=== PATIENT | female | born 1990 | race Caucasian/White ===

== ENCOUNTER 2018-04-02 12:14 | Emergency (ER) | payer OTHER ==
[2018-04-02] MEDS: SOD CHLORIDE 0.9% 1,000 ML IV (13:37)
[2018-04-02] MEDS: ONDANSETRON 4 MG INJ IV (13:37)
[2018-04-02 13:56] LABS: ADD MAN DIFF? NO
[2018-04-02 13:57] LABS: ABNORMAL IP MESSAGE 1; BASOPHILS % 0.3 % (0.0-2.0); EOSINOPHILS # 0.1 10^3/ul (0.0-0.5); EOSINOPHILS % 1.2 % (0.0-7.0); HEMATOCRIT 38.6 % (37.0-47.0); HEMOGLOBIN 13.1 g/dl (12.0-16.0); LYMPHOCYTES # 1.1 10^3/ul (0.8-2.9); LYMPHOCYTES % 9.2 % (15.0-51.0); MEAN CORPUSCULAR HEMOGLOBIN 29.6 pg (29.0-33.0); MEAN CORPUSCULAR HGB CONC 33.9 g/dl (32.0-37.0); MEAN CORPUSCULAR VOLUME 87.1 fl (82.0-101.0); MEAN PLATELET VOLUME 13.3 fl (7.4-10.4); MONOCYTE # 0.5 10^3/ul (0.3-0.9); MONOCYTES % 4.4 % (0.0-11.0); NEUTROPHIL # 10.3 10^3/ul (1.6-7.5); NEUTROPHILS % 84.6 % (39.0-77.0); PLATELET COUNT 199 10^3/UL (140-415); RED BLOOD COUNT 4.43 10^6/ul (4.20-5.40); RED CELL DISTRIBUTION WIDTH 12.2 % (11.5-14.5)
[2018-04-02 13:57] LABS: WHITE BLOOD COUNT 12.2 10^3/ul (4.8-10.8)
[2018-04-02 14:07] LABS: POSITIVE DIFF @See below
[2018-04-02 14:26] LABS: ALANINE AMINOTRANSFERASE 19 IU/L (13-69); ALBUMIN 3.8 g/dl (3.3-4.9); ALBUMIN/GLOBULIN RATIO 0.97; ALKALINE PHOSPHATASE 65 IU/L (42-121); ANION GAP 14 (8-16); ASPARTATE AMINO TRANSFERASE 27 IU/L (15-46); BILIRUBIN,INDIRECT 0.5 mg/dl (0-1.1); BILIRUBIN,TOTAL 0.5 mg/dl (0.2-1.3); BLOOD UREA NITROGEN 3 mg/dl (7-20); CALCIUM 9.5 mg/dl (8.4-10.2); CARBON DIOXIDE 22 mmol/L (21-31); CHLORIDE 104 mmol/L (97-110); GLUCOSE 85 mg/dl (70-220); POTASSIUM 3.5 mmol/L (3.5-5.1); SODIUM 136 mmol/L (135-144); TOTAL PROTEIN 7.7 g/dl (6.1-8.1)
[2018-04-02 14:50] LABS: ADD UMIC YES; UR ASCORBIC ACID NEGATIVE (NEGATIVE); UR BACTERIA FEW /HPF (NONE SEEN); UR BILIRUBIN (Dip) NEGATIVE (NEGATIVE); UR BLOOD (Dip) 1+ mg/dL (NEGATIVE); UR CLARITY CLEAR (CLEAR); UR COLOR YELLOW (YELLOW); UR GLUCOSE (Dip) NEGATIVE (NEGATIVE); UR KETONES (Dip) 1+ mg/dL (NEGATIVE); UR LEUKOCYTE ESTERASE (Dip) NEGATIVE Leu/ul (NEGATIVE); UR NITRITE (Dip) NEGATIVE (NEGATIVE); UR RBC 1 /HPF (0-5); UR SPECIFIC GRAVITY (Dip) 1.006 (1.003-1.030); UR SQUAMOUS EPITHELIAL CELL FEW /HPF (FEW); UR TOTAL PROTEIN (Dip) NEGATIVE (NEGATIVE); UR UROBILINOGEN (Dip) 1+ mg/dL (NEGATIVE); UR WBC 2 /HPF (0-5)
[2018-04-02] MEDS: ACETAMINOPHEN 325 MG TAB PO (15:04)
== END 2018-04-02 15:07 | disposition home or self-care (01) ==
LOC: FTE 12:14
DX: O99.89 Other specified diseases and conditions complicating pregnancy, childbirth and the puerperium (principal); M54.5 Low back pain; O21.9 Vomiting of pregnancy, unspecified; R30.9 Painful micturition, unspecified; Z3A.17 17 weeks gestation of pregnancy
CPT/HCPCS: 76805; 80053; 81001; 85025; 87086; 96361; 96374; 99285-25

== ENCOUNTER 2018-10-03 05:28 | Inpatient (IN) | payer OTHER ==
[2018-10-03] MEDS ORDERED: FENTAnyl 50 MCG/ML VIAL ×2 (07:31→07:32)
[2018-10-03] MEDS ORDERED: MIDAZOLAM 1 MG/ML 2 ML INJ (07:32)
[2018-10-03] MEDS: VASOPRESSIN 20 UNITS INJ (07:57)
[2018-10-03] MEDS ORDERED: ONDANSETRON 4 MG INJ (08:55)
[2018-10-03] MEDS ORDERED: LIDOCAINE 2% (SDV) 5 ML INJ (08:55)
[2018-10-03] MEDS ORDERED: CEFAZOLIN 1 GM INJ (08:55)
[2018-10-03] MEDS ORDERED: PROPOFOL 20 ML (08:55)
[2018-10-03] MEDS ORDERED: ROCURONIUM 50 MG INJ (08:55)
[2018-10-03] MEDS ORDERED: morphine 10 MG INJ (08:56)
[2018-10-03] MEDS ORDERED: KETOROLAC 30 MG INJ (09:05)
[2018-10-03] MEDS ORDERED: HYDROmorphONE 1 MG/ML SYG (09:20)
[2018-10-03] MEDS ORDERED: HYDROmorphONE 1 MG/5 ML IV SYRINGE IV (09:21)
[2018-10-03] MEDS ORDERED: ONDANSETRON 4 MG INJ IV (09:30)
[2018-10-03] MEDS ORDERED: FENTAnyl 50 MCG/ML VIAL IV (09:30)
[2018-10-03] MEDS ORDERED: DIPHENHYDRAMINE 50 MG INJ IV (09:30)
[2018-10-03] MEDS ORDERED: MIDAZOLAM 1 MG/ML 2 ML INJ IV (09:30)
[2018-10-03] MEDS ORDERED: METOCLOPRAMIDE 10 MG INJ IV (09:30)
[2018-10-03] MEDS: HYDROmorphONE 1 MG/5 ML IV SYRINGE IV ×2 (09:32→09:53)
[2018-10-03] MEDS: MEPERIDINE 25 MG INJ IV (10:01)
[2018-10-03] MEDS: MAGNESIUM HYDROXIDE 30ML CUP PO (10:54)
[2018-10-03] MEDS: LACTATED RINGER'S 1,000 ML IV ×2 (10:54→19:29)
[2018-10-03] MEDS: HYDROmorphONE 2 MG/ML SYG IV (13:19)
[2018-10-03] MEDS: ONDANSETRON 4 MG INJ IV ×2 (14:07→17:27)
[2018-10-03] MEDS: HYDROmorphONE 0.2 MG/ML PCA IV (15:16)
[2018-10-04] MEDS: HYDROmorphONE 0.2 MG/ML PCA IV (00:59)
[2018-10-04] MEDS: ACETAMINOPHEN 325 MG TAB PO (01:47)
[2018-10-04] MEDS: LACTATED RINGER'S 1,000 ML IV ×3 (03:26→17:38)
[2018-10-04 04:01] LABS: ADD UMIC YES; UR ASCORBIC ACID NEGATIVE (NEGATIVE); UR BILIRUBIN (Dip) NEGATIVE (NEGATIVE); UR BLOOD (Dip) 1+ mg/dL (NEGATIVE); UR CLARITY CLEAR (CLEAR); UR COLOR STRAW (YELLOW); UR GLUCOSE (Dip) NEGATIVE (NEGATIVE); UR KETONES (Dip) 1+ mg/dL (NEGATIVE); UR LEUKOCYTE ESTERASE (Dip) NEGATIVE Leu/ul (NEGATIVE); UR NITRITE (Dip) NEGATIVE (NEGATIVE); UR RBC 1 /HPF (0-5); UR SPECIFIC GRAVITY (Dip) 1.008 (1.003-1.030); UR TOTAL PROTEIN (Dip) NEGATIVE (NEGATIVE); UR UROBILINOGEN (Dip) NEGATIVE (NEGATIVE); UR WBC 0 /HPF (0-5)
[2018-10-04 05:04] LABS: ADD MAN DIFF? NO
[2018-10-04 05:07] LABS: WHITE BLOOD COUNT 10.5 10^3/ul (4.8-10.8)
[2018-10-04 05:07] LABS: BASOPHILS % 0.2 % (0.0-2.0); EOSINOPHILS % 0.1 % (0.0-7.0); HEMATOCRIT 33.1 % (37.0-47.0); HEMOGLOBIN 11.1 g/dl (12.0-16.0); LYMPHOCYTES # 0.9 10^3/ul (0.8-2.9); LYMPHOCYTES % 8.2 % (15.0-51.0); MEAN CORPUSCULAR HEMOGLOBIN 29.6 pg (29.0-33.0); MEAN CORPUSCULAR HGB CONC 33.5 g/dl (32.0-37.0); MEAN CORPUSCULAR VOLUME 88.3 fl (82.0-101.0); MEAN PLATELET VOLUME 12.1 fl (7.4-10.4); MONOCYTE # 0.6 10^3/ul (0.3-0.9); MONOCYTES % 5.7 % (0.0-11.0); NEUTROPHIL # 8.9 10^3/ul (1.6-7.5); NEUTROPHILS % 85.5 % (39.0-77.0); PLATELET COUNT 158 10^3/UL (140-415); RED BLOOD COUNT 3.75 10^6/ul (4.20-5.40); RED CELL DISTRIBUTION WIDTH 13.9 % (11.5-14.5)
[2018-10-04 05:24] LABS: ALANINE AMINOTRANSFERASE 22 IU/L (13-69); ALBUMIN 3.2 g/dl (3.3-4.9); ALBUMIN/GLOBULIN RATIO 1.18; ALKALINE PHOSPHATASE 48 IU/L (42-121); ANION GAP 7 (5-13); ASPARTATE AMINO TRANSFERASE 33 IU/L (15-46); BILIRUBIN,INDIRECT 0.8 mg/dl (0-1.1); BILIRUBIN,TOTAL 0.8 mg/dl (0.2-1.3); BLOOD UREA NITROGEN 3 mg/dl (7-20); CALCIUM 8.6 mg/dl (8.4-10.2); CARBON DIOXIDE 24 mmol/L (21-31); CHLORIDE 106 mmol/L (97-110); CREATININE 0.52 mg/dl (0.44-1.00); Estimated GFR > 60 mL/min (>60); GLUCOSE 98 mg/dl (70-220); POTASSIUM 3.8 mmol/L (3.5-5.1); SODIUM 137 mmol/L (135-144); TOTAL PROTEIN 5.9 g/dl (6.1-8.1)
[2018-10-04] MEDS: BISACODYL 10 MG SUPP PR ×2 (06:14→15:30)
[2018-10-04] MEDS: MAGNESIUM HYDROXIDE 30ML CUP PO (06:15)
[2018-10-04] MEDS ORDERED: HYDROCODONE/APAP (5/325) TAB PO (09:30)
[2018-10-04] MEDS: HYDROCODONE/APAP (5/325) TAB PO ×2 (09:57→13:27)
[2018-10-04] MEDS: IBUPROFEN 800 MG TAB PO ×2 (14:14→19:10)
[2018-10-04] MEDS ORDERED: BISACODYL 10 MG SUPP PR (17:00)
[2018-10-04] MEDS: ONDANSETRON 4 MG INJ IV (19:46)
[2018-10-05] MEDS: LACTATED RINGER'S 1,000 ML IV ×3 (01:01→21:00)
[2018-10-05] MEDS: ONDANSETRON 4 MG INJ IV ×3 (01:14→16:08)
[2018-10-05] MEDS: IBUPROFEN 800 MG TAB PO ×3 (01:15→16:08)
[2018-10-05 05:31] LABS: ADD MAN DIFF? NO
[2018-10-05 05:35] LABS: WHITE BLOOD COUNT 10.6 10^3/ul (4.8-10.8)
[2018-10-05 05:35] LABS: BASOPHILS % 0.1 % (0.0-2.0); EOSINOPHILS # 0.1 10^3/ul (0.0-0.5); EOSINOPHILS % 1.2 % (0.0-7.0); HEMATOCRIT 32.1 % (37.0-47.0); HEMOGLOBIN 10.4 g/dl (12.0-16.0); LYMPHOCYTES % 9.1 % (15.0-51.0); MEAN CORPUSCULAR HEMOGLOBIN 29.1 pg (29.0-33.0); MEAN CORPUSCULAR HGB CONC 32.4 g/dl (32.0-37.0); MEAN CORPUSCULAR VOLUME 89.9 fl (82.0-101.0); MONOCYTE # 0.7 10^3/ul (0.3-0.9); MONOCYTES % 6.5 % (0.0-11.0); NEUTROPHIL # 8.8 10^3/ul (1.6-7.5); NEUTROPHILS % 82.7 % (39.0-77.0); PLATELET COUNT 163 10^3/UL (140-415); RED BLOOD COUNT 3.57 10^6/ul (4.20-5.40)
== END 2018-10-05 21:40 | disposition home or self-care (01) | DRG 743 ==
LOC: SDS 05:28 → REC 09:12 → MS1 10:11
PROVIDERS: Obstetrics & Gynecology
PROC: 0UB20ZZ Excision of Bilateral Ovaries, Open Approach (ICD-10-PCS; principal; 2018-10-03 07:27)
PROC: 0UDB8ZX Extraction of Endometrium, Via Natural or Artificial Opening Endoscopic, Diagnostic (ICD-10-PCS; 2018-10-03 07:27)
PROC: 0UB90ZZ Excision of Uterus, Open Approach (ICD-10-PCS; 2018-10-03 07:27)
PROC: 0U520ZZ Destruction of Bilateral Ovaries, Open Approach (ICD-10-PCS; 2018-10-03 07:27)
DX: D25.9 Leiomyoma of uterus, unspecified (principal); N92.0 Excessive and frequent menstruation with regular cycle; G89.29 Other chronic pain; E28.2 Polycystic ovarian syndrome; N80.0 Endometriosis of uterus
CPT/HCPCS: 80053; 81001; 84703; 85025; 86850; 86900; 86901; 87040; 87086; 88305

== ENCOUNTER 2019-01-19 18:30 | Emergency (ER) | payer OTHER ==
[2019-01-19] MEDS: predniSONE 20 MG TAB PO (20:24)
[2019-01-19] MEDS: IBUPROFEN 800 MG TAB PO (20:24)
== END 2019-01-19 21:01 | disposition home or self-care (01) ==
LOC: FTE 18:30
DX: J02.9 Acute pharyngitis, unspecified (principal); J40 Bronchitis, not specified as acute or chronic
CPT/HCPCS: 99283; J7512